=== PATIENT | male | born 1975 | race Caucasian/White ===

== ENCOUNTER 2017-07-07 18:31 | Emergency (ER) | payer OTHER ==
[~2017-07-07] VITALS: Ht 175.3 cm; Wt 117.9 kg
[2017-07-07] MEDS ORDERED: LISINOPRIL10 MG PO (18:46)
[2017-07-28] MEDS ORDERED: NORCO 10-325 T1 EACH PO (14:06)
[2017-07-28] MEDS ORDERED: AMLODIPINE BESY10 MG PO (14:11)
[2017-07-28] MEDS ORDERED: MICROZIDE12.5 MG PO (14:12)
[2017-07-28] MEDS ORDERED: ULTRAM50 MG PO (14:12)
[2017-07-28] MEDS ORDERED: MELOXICAM15 MG PO (14:13)
== END 2017-07-07 21:13 | disposition home or self-care (01) ==
LOC: ED 18:31
DX: M25.511 Pain in right shoulder (principal); I10 Essential (primary) hypertension; Z88.0 Allergy status to penicillin; Z98.890 Other specified postprocedural states; Z79.899 Other long term (current) drug therapy
CPT/HCPCS: 73030; 99282

== ENCOUNTER 2017-08-11 09:00 | Day surgery (SDC) | payer OTHER ==
--- NOTE | 2017-07-28 14:45 | NUR ---
PATIENT HERE FOR PREADMISSION APPOINTMENT. HE IS SCHEDULED TO HAVE A RIGHT TOTAL SHOULDER ARTHROPLASTY ON 08/11/17. PATIENT IS CURRENTLY WEARING A SLING FOR COMFORT. QUESTIONS WERE ANSWERED. PATIENT IS SCHEDULED WITH PHYSICAL THERAPY ON 08/07/17 AT 1000. THIS INFORMATION WILL BE SENT TO DR CALABRESE AND ROSENDA PLANNING FOR FURTHER FOLLOW UP.
[~2017-08-11] VITALS: Ht 175.3 cm; Wt 117.9 kg
[~2017-08-11 09:00] MED LIST: AMLODIPINE BESY10 MG PO; LISINOPRIL10 MG PO; MELOXICAM15 MG PO; MICROZIDE12.5 MG PO; NORCO 10-325 T1 EACH PO; ULTRAM50 MG PO
[2017-08-11] MEDS ORDERED: ZESTRIL20 MG PO (13:13)
--- NOTE | 2017-08-11 16:44 | NUR ---
patient arrived to room 121 at 1640. pt on cpap machine. 50% oxygen bled in. right arm in sling. radial pulse +2. opens eyes to voice. eyes closed between cares. no pain at this time.
--- NOTE | 2017-08-11 17:12 | NUR ---
08/11/17 1712 Allison Alvarez 1429 PT ARRIVED TO PACU WITH ORAL AIRWAY IN PLACE AND CHIN THRUST NEEDED TO MAINTAIN AIRWAY. PT UNRESPONSIVE TO VERBAL OR PAINFUL STIMULI. SNORING RESPS. SOME IMPROVMENT WITH JAW THRUST. BOX COVERING MACHINE OPERATOR AT BEDSIDE. ACCESSORY MUSCLE/ SEESAW BREATHING. 1434 O2 SAT 86% WITH GOOD WAVE FORM. O2 INCREASED TO 15L VIA MASK. 1436 BREATHING TREATMENT GIVEN PER BOX COVERING MACHINE OPERATOR, UPPER WHEEZE NOTED. 1440 PT WOKE UP TO PAINFUL STIMULI AND ORAL AIRWAY REMOVED. ENCOURAGED TO DEEP BREATH AND COUGH PT UNABLE TO FOLLOW COMMANDS. CONTINUES TO HAVE DECREASED O2. 1443 RT AT BEDSIDE. 1447 O2 SAT 94%, 15L VIA MASK. PT CONTINUES TO BE DIFFICULT TO AROUSE. 1450 BOX COVERING MACHINE OPERATOR GIVING LASIX AND MAGNESIUM IN LR BAG HANGING. 1453 O2 SAT 91%, 15L VIA MASK. PT AWAKE OFF AND ON, CAN NOT FOLLOW COMMANDS TO DEEP BREATH AND COUGH. 1456 PT REPORTS SOB. RT PLACE PT ON BI PAP SEE RT NOTES FOR SETTINGS. 1458 BOX COVERING MACHINE OPERATOR AT BEDSIDE AND BENADRYL AND HYDROCORTISONE GIVEN. 1500 PT AWAKE OFF AND ON. VERY DROWSY. MUMBLED SPEECH, RESP EVEN AND LABORED BUT INPROVING, DECREASED USE OF ACCESSORY MUSCLES. DENIES PAIN AND NAUSEA. 1503 HOSPITALIST CONSULT PUT IN AND RT DRAWING ABG. 1518 X-RAY AT BEDSIDE FOR CHEST X-RAY. 1530 BOX COVERING MACHINE OPERATOR AWARE OF ABG RESULTS. VERBAL ORDER TO TITRATE FiO2. 1532 BI PAP SETTING O2 INCREASED 60% 1534 BI PAP SETTING O2 INCREASED TO 70%, IPAP 18% 1540 PT CONTINUES TO BE DIFFICULT TO AROUSE. NOT EFFECTIVELY DEEP BREATHING OR COUGHING. 1544 NARCAN GIVEN PER BOX COVERING MACHINE OPERATOR, 1545 PT ASKING TO USE URINAL AND MORE AWAKE, DENIES PAIN AND NAUSEA. 1556 PT UNABLE TO URINATE. AGREES TO WEBB CATHETER. PT COMPLAINING OF ABD DISCOMFORT, HE RELATES TO BLADDER. 1558 MD HOSPITALIST AT BEDSIDE. 1559 BI PAP REMOVED PER MD. 1604 CATHETER PLACED PER BOX COVERING MACHINE OPERATOR. 1615 BI PAP REPLACE. BI PAP O2 SETTING DECREASED TO 50%, IPAP 15%. PT IS ALERT AND ORIENTED X3. BREATHING IMPROVING ON BI PAP. PT DENIES SOB, PAIN OR NAUSEA. 1630 PT CONTINUES TO IMPROVE, TRANSFERED TO FLOOR WITH RN AND RT AT BEDSIDE.
--- NOTE | 2017-08-11 17:38 | NUR ---
PT HUNGRY AND GIVEN PUDDING, JUICE, AND CRACKERS. IF TOLERATES PATIENT WILL BE SALINE LOCKED. SANDWICH ORDERED FROM KITCHEN PER PATIENT REQUEST. FAMILY AT BEDSIDE.
--- NOTE | 2017-08-11 17:49 | NUR ---
PATIENT HAD RESPIRATORY FAILURE AFTER SURGERY. ON BIPAP. SERIAL ABGs TAKEN. IMRPOVED PCO2. PATIENT ON 4L O2 NC NOW SATURATING 95%. TOLERATING SOLID FOODS WELL. SALINE LOCKED. FAMILY AT BEDSIDE. WEBB CATHETER IN PLACE. RIGHT ARM IN SLING. NO PAIN.
--- NOTE | 2017-08-11 21:20 | NUR ---
PATIENT C/O PAIN #8.5/. CHARGE NURSE NOTIFIED.
--- NOTE | 2017-08-11 21:40 | NUR ---
PT SITTING UP IN BED, WATCHING TV. FRIENDS JUST LEFT, THEY BROUGHT A PIZZA IN FOR PT, IN WHICH HE ATE 1/2 OF IT, DENIES NAUSEA. PT NOW RATING PAIN AT 9/10, GAVE SCHEDULED PAIN MEDICATIONS. PT LAYING IN BED, NO DISTRESS AT THIS TIME. ALERT AND ORIENTED X4, PLEASENT DEMEANOR. COOPERATIVE. RIGHT ARM IN SLING, ICE IN PLACE. CALL LIGHT IN REACH. WILL CONTINUE TO MONITOR PAIN CLOSELY. O2 SAT IN MID TO UPPER 90'S ON 4L VIA NC.
--- NOTE | 2017-08-11 22:33 | NUR ---
PT CONTINUES TO COMPLAIN OF 9/10 PAIN, GAVE OXYCODONE FOR PAIN. NO FURTHER NEEDS. CALL LIGHT IN REACH.
--- NOTE | 2017-08-11 23:24 | NUR ---
PT RESTING QUIETLY. NO NEEDS AT THIS TIME. CALL LIGHT IN REACH. LIGHTS OUT. TV ON IN ROOM.
--- NOTE | 2017-08-11 23:39 | NUR ---
RT IN TO ASSESS PT. PT NOW RATES PAIN AT A 5/10, STATES "ITS TOLERABLE RIGHT NOW." EDUCATED PT ON PAIN MANAGMENT. PT AGREES TO CALL RN IF PAIN WORSENS. CALL LIGHT IN REACH.
--- NOTE | 2017-08-12 00:52 | NUR ---
pt reports pain is starting to "creep up." gave dilaudid 1 tab for pain. 94% on 3l via nc. no further needs. call light in reach.
--- NOTE | 2017-08-12 06:09 | NUR ---
pt complained of 8/10 pain, gave dilaudid iv for pain. pt alert and oriented x4. awake, watching tv. pleasent demeanor. talkative. no further needs.
--- NOTE | 2017-08-12 07:15 | NUR ---
BEDSIDE HANDOFF REPORT RECEIVED FROM IRON CUTTER. PT RESTING IN BED. PT RATING PAIN 5/10. PT DENIES NEEDS AT THIS TIME, ASSISTED WITH ORDERING DINNER.
--- NOTE | 2017-08-12 08:01 | OR ---
[facility] [address] [place] [place] [address] Signed DATE OF OPERATION: 08/11/2017 SURGEON: Colten Calabrese MD PREOPERATIVE DIAGNOSIS: End-stage primary osteoarthritis, right shoulder. POSTOPERATIVE DIAGNOSIS: End-stage primary osteoarthritis, right shoulder. PROCEDURE: Right total shoulder arthroplasty. ANESTHESIA: General. SPECIMENS AND COMPLICATIONS: There were no specimens or complications. BLOOD LOSS: About 200 mL. IMPLANTS: Size 12 stem, size 12 body, 52 mm x 18 head, and a 52 mm all-poly glenoid. These are all from the [employer] system. WHAT WAS DONE: The patient was taken to the operating room. After anesthesia was induced and airway secured, the patient was placed in a modified beach chair position and prepped and draped in a routine sterile fashion. An anterior deltopectoral incision was made through skin and subcutaneous tissue. Hemostasis was achieved with electrocautery. The deltopectoral interval was identified. Cephalic vein was gently even exposed and the deltoid in the cephalic vein were taken laterally and the pec was taken medially. We did a minimal release of the top 20% of the pec major to give us a little more external rotation. We then identified the biceps tendon in the bicipital groove and released the anterior tubercular ligaments. We placed a stay suture in the long head of the biceps and then sectioned it. We then followed the long-head of the biceps through the rotator interval all the way to the glenoid. We then elevated the subscapularis off the lesser tuberosity with sharp dissection. As we peeled it back, we placed some stay sutures in the leading edge and we were able to separate it from the underlying capsule. We then Electronically Signed By: COLTEN CALABRESE MD 08/12/17 0801 PATIENT NAME: JIHAN LUIS JR OPERATIVE REPORT DATE OF : 77 REPORT #: [id number] PHYSICIAN: COLTEN CALABRESE MD PCP: NO PRIMARY CARE PHYSICIAN REPORT IS CONFIDENTIAL AND NOT TO BE RELEASED WITHOUT AUTHORIZATION [facility] [address] [place], [place] [address] Signed allowed the subscap to retract. We then externally rotated the shoulder and delivered the humeral head into the wound. The remaining portion of the rotator cuff was intact, as had been anticipated from the MRI scan. We then began at the apex of the articular surface and drilled a small submersible pilot hole. We then reamed with a quiller hand up to a size 12, which gave us an excellent fit. We then assembled the resection jig, aligned it, so it was aligned with the forearm and resected the articular surface. We then removed the articular fragment and measured, it was 52 by about 16. We then placed a humeral head protector on the top of the humerus and externally rotated. Using blunt and sharp dissection staying right on the humeral neck, we released the capsule all the way down and slightly past the 6 o'clock position. However, then able to place some retractors around the glenoid and actually had very good glenoid exposure. Using a sharp and electrocautery dissection, we then removed the entire labrum and then gently did a circumferential re-release. At this point, we had excellent exposure of the glenoid. We trialed with a 52 overlay and we are quite happy. We then placed the drill pin through the center of the overlay and then reamed the central portion. We then placed the 52 guide over the central pec and once we were happy with the rotation, secured the 3 additional fixation points. We then removed this. The glenoid was copiously irrigated and meticulously dried. We used the bone graft to tamper and filled the central pec at the glenoid with bone graft material. We then mixed a single batch of cement and put a tiny bit of cement in each of the 3 peripheral fixation holes. The 52 mm glenoid was then pounded into place and seated securely. We then rotated the humerus back into the wound. We again placed the trial in place and it fit quite nicely on the neck cut. We therefore trialed the 15 and 18 and a 21 mm x 52 head. The 15 clearly was a little too loose, the 18 seemed excellent, the 21 seemed to slightly overstuff the joint. We therefore copiously irrigated the shoulder to cut all the trials, put in the real 12 x 12 implant and then the final 52 x 18 head. We then relocated the shoulder. Before driving the final components into place, we have placed a number of stay sutures through the fins. These were then used to reattached in advance the subscapularis with #2 FiberWire. We then closed the rotator interval with #2 FiberWire. The biceps tendon was then looped over the pec major tendon and sutured back to itself. The wound was copiously irrigated and closed in a standard fashion. The patient was placed in a sling, awakened to recovery room and arrived in stable condition. MD INGRID Blanc/BEAU /[id number] Electronically Signed By: COLTEN CALABRESE MD 08/12/17 0801 PATIENT NAME: JIHAN LUIS JR OPERATIVE REPORT DATE OF : 77 REPORT #: [id number] PHYSICIAN: COLTEN CALABRESE MD PCP: NO PRIMARY CARE PHYSICIAN REPORT IS CONFIDENTIAL AND NOT TO BE RELEASED WITHOUT AUTHORIZATION [address] [address] Signed Copies: ~ Electronically Signed By: COLTEN CALABRESE MD 08/12/17 0801 PATIENT NAME: JIHAN LUIS JR OPERATIVE REPORT DATE OF : 77 REPORT #: [id number] PHYSICIAN: COLTEN CALABRESE MD PCP: NO PRIMARY CARE PHYSICIAN REPORT IS CONFIDENTIAL AND NOT TO BE RELEASED WITHOUT AUTHORIZATION
--- NOTE | 2017-08-12 08:15 | NUR ---
PT RESTING IN BED, GOOD APPETITE, ATE 100% OF BREAKFAST. PT RATING PAIN 5/10, GIVEN OXYCODONE, ICE PACK TO RIGHT SHOULDER. PT 97% ON 3L NC, WEANED TO 2L, CONTINUOUS PULSE OX IN PLACE, LUNG SOUNDS CLEAR, DENIES SOB. PT DENIES NAUSEA, BOWEL TONES ACTIVE. PT WITH NUMBNESS TO RIGHT FINGERS 1-3, MORE NUMB AND WEAKER THAN PT BASELINE, ARM IN SLING, PUSLE PALPABLE, FINERGS WARM. PT WITH WEBB CATH IN PLACE, DRAINING FREELY. IV SALINE LOCKED. PT DENIES OTHER NEEDS AT THIS TIME, DISCUSSED PLAN OF CARE.
--- NOTE | 2017-08-12 10:25 | NUR ---
VS AND I&O'S TAKEN AND DOCUMENTED. PT GIVEN LEFTOVER PIZZA THAT WAS IN THE FRIDGE AND A SODA POP. PT STATES HE HAS NO OTHER NEEDS AT THIS TIME. INFORMED PT TO CALL IF HE THINKS OF ANYTHING. CALL LIGHT IS IN REACH.
--- NOTE | 2017-08-12 11:00 | NUR ---
pt resting in chair. pt complaint of pain 8/10 to right shoulder, requestign pain medication. pt given 8 mg po dilaudid. pt denies other needs at this time. weaned to 1l nc.
[2017-08-12] MEDS ORDERED: NORCO 10-325 T1 EACH PO (13:21)
--- NOTE | 2017-08-12 13:49 | NUR ---
REVIEWED CHEST XRAY AND REPORTED TO THIS RN PT OK FOR DISCHARGE"
--- NOTE | 2017-08-13 09:06 | NUR ---
FAXED CHART NOTES TO [facility] OP PT INCLUDING FACESHEET, ORDER, H AND P, OP NOTE, AND PT EVAL. RECIEVED FAX CONFIRMATION.
--- NOTE | 2017-08-13 09:59 | NUR ---
PT WAS SITTING IN CHAIR-ALERT AND ORIENTED. HE SHARED WITH ME THAT HE FEELS BAD THAT HE HAS HAD THIS SURGERY BECAUSE OF WHAT HE PERCEIVES ARE HARDSHIPS PLACED ON HIS CHILDREN. HE SAID HE HAS 5, AND ALL LIVE WITH THEIR MOTHERS, BUT HE KNOWS THE [facility] FOR DAD. FEELS HIS QUESTIONS HAVE BEEN ANSWERED, HOPES HEALING COMES SOON. EXTENDED A BLESSING, WILL FOLLOW NEEDED
== END 2017-08-12 14:25 | disposition home or self-care (01) ==
LOC: DSVR 09:00 → DS 09:00 → MS 09:00 → EDSTATUS 11:45 → MS 16:25 → DSVR 16:25 → MS 08-12 14:25 → DS 08-12 14:25
PROVIDERS: Orthopaedic Surgery
PROC: 0RRJ0JZ Replacement of Right Shoulder Joint with Synthetic Substitute, Open Approach (ICD-10-PCS; principal; 2017-08-11 11:45)
DX: M19.011 Primary osteoarthritis, right shoulder (principal); I10 Essential (primary) hypertension; Z88.0 Allergy status to penicillin; Z79.891 Long term (current) use of opiate analgesic; Z79.899 Other long term (current) drug therapy; Z79.1 Long term (current) use of non-steroidal anti-inflammatories (NSAID)
CPT/HCPCS: 01630; 36415; 36600; 64415; 71045; 71046; 73030; 76942; 80048; 82803; 85025; 94660; 94668; 94762; 97110; 97161; C1713; C1776; G8978; G8979; G8980; J0690; J0735; J1100; J1200; J1720; J1885; J2250; J2270; J2310; J2405; J2704; J2765; J3010; J3370; J3475; J7120

== ENCOUNTER 2025-05-12 06:05 | Day surgery (SDC) | payer OTHER ==
[~2025-05-12] VITALS: Ht 175.3 cm; Wt 140.0 kg
[~2025-05-12 06:05] MED LIST changes: +HYDROCODON-ACE1 EA11 PO; +LACTATED RINGER'S 1,000 ML IV SCH; +ZESTRIL20 MG PO
[2025-05-12 06:38] VITALS: BP 143/95
[2025-05-12] MEDS ORDERED: ASPIRIN325 MG PO (06:41)
[2025-05-12] MEDS ORDERED: IBUPROFEN200 M1 PO (06:42)
[2025-05-12] MEDS ORDERED: LIDOCAINE HCL 1% 5 ML SDV INJ ONE (07:00)
[2025-05-12] MEDS ORDERED: CEFAZOLIN SODIUM 3 GM in SODIUM CHLORIDE 0.9% 100 ML IV SCH (07:00)
[2025-05-12] MEDS ORDERED: IBLOOD GLUCOSE TEST STRIP 1 EA TEST VI PRN ×2 (07:00→09:45)
[2025-05-12] MEDS ORDERED: HEParin SOD (PORCINE) 5,000 UNIT/ML SDV SUB-Q SCH (07:00)
[2025-05-12] MEDS ORDERED: fentaNYL citrate 100 MCG/2 ML VIAL ONE ×2 (07:04→08:24)
[2025-05-12] MEDS ORDERED: MIDAZOLAM HCL 2 MG/2 ML VIAL ONE (07:04)
[2025-05-12] MEDS ORDERED: ROCURONIUM BROMIDE 50 MG/5 ML SYR ONE ×2 (07:04→08:21)
[2025-05-12] MEDS ORDERED: DEXAMETHASONE SOD PHOS 4 MG/ML VIAL ONE (07:04)
[2025-05-12] MEDS ORDERED: KETOROLAC TROMETHAMINE 30 MG/ML VIAL ONE (07:04)
[2025-05-12] MEDS ORDERED: ACETAMINOPHEN 1,000 MG/100 ML VIAL ONE (07:04)
[2025-05-12] MEDS ORDERED: LIDOCAINE HCL 2% 20 MG/ML VIAL INJ ONE (07:04)
[2025-05-12] MEDS ORDERED: LIDOCAINE HCL 2% 5 ML SDV ONE (07:04)
[2025-05-12] MEDS ORDERED: SUGAMMADEX SODIUM 200 MG/2 ML ML ONE (07:05)
[2025-05-12] MEDS ORDERED: HYDROmorphone HCL 1 MG/ML SYR IV PRN (09:45)
[2025-05-12] MEDS ORDERED: fentaNYL citrate 50 MCG/ML SDV IV PRN (09:45)
[2025-05-12] MEDS ORDERED: PROCHLORPERAZINE EDISYLATE 10 MG/2 ML VIAL IV PRN (09:45)
[2025-05-12] MEDS ORDERED: NALOXONE HCL 0.4 MG SYR IV PRN (09:45)
--- NOTE | 2025-05-12 10:06 | NUR ---
05/12/25 1006 Faye Do 0927-PT ARRIVES TO PACU, VIA STRETCHER, PT NOT RESPONISVE TO NOXIOUS STIMULI, OPA IN PLACE, PT REQUIRING MANUAL JAW THRUST, O2 SATS 87% ON 10L VIA MASK, O2 INCREASED TO 15L, SATS INCREASED TO 89%. ANESTHESIA AT BEDSIDE ASSESSING PT. 0930-PT PLACED ON 15L VIA NRB, SATS IMPROVED TO 96%. PT NO LONGER REQUIRING MANUAL JAW THRUST. OPA REMAINS IN PLACE. 0935-PT RESPONISIVE TO STIMULI, SWITCHED BACK TO 10L VIA MASK, VS REMAIN STABLE. PT FALLS BACK TO SLEEP EASILY, RR EVEN AND NON LABORED. 0940-PT AWAKENS ON OWN TAKING OFF MASK, TRIALED ON RA, VSS. PT DENIES PAIN OR NAUSEA. 0945-PT FALLS BACK TO SLEEP EASILY, RR EVEN AND UNLABORED, O2 SATS DECREASE TO 88% PLACED ON 10L VIA MASK, SATS IMPROVED TO 97%. 1000-PT AWAKENS TO VOICE AND FOLLOWS INSTRUCTIONS TO DEEP BREATH, PT SWITCHED TO 6L VIA NC, VS REMAIN STABLE. PT C/O ABDOMINAL TENDERNESS BUT DENIES NEED FOR INTERVENTION. FALLS BACK TO SLEEP EASILY, RR EVEN AND UNLABORED.
[2025-05-12] MEDS ORDERED: SEVOFLURANE 250 ML BTL INH ONE (10:51)
[2025-05-12] MEDS ORDERED: OXYCODONE HCL 5 MG TAB PO ONE (11:00)
[2025-05-12 11:06] VITALS: BP 135/85
--- NOTE | 2025-05-12 11:20 | NUR ---
1055 PT ARRIVED TO DAY SURGERY FROM PACU VIA STREACHER. PT BREATHING EQUAL AND UNLABORED. PT VITALS TAKEN. IV ASSESSED, AND IS SALINE LOCKED. REPORT TAKEN FROM RAND Ambrocio RN. RN REPORTS THAT PT HAS VOIDED 250 MLS IN PACU, PT HAS ALSO TOLERATE PO FLUIDS AND SNACKS IN PACU WELL. PT REPORTS 6/10 PAIN AT THIS TIME, PT REPORTS NO NAUSEA. PT HAS CALL LIGHT WITHIN REACH AND PERSONAL ITEMS WITHIN REACH. PT STEP FATHER IN ROOM AT BEDSIDE. 1110 PAIN MEDICATIONS GIVEN PER EMAR. PT STEP FATHER IN ROOM AT BEDSIDE.
[2025-05-12 12:14] VITALS: BP 143/85
--- NOTE | 2025-05-12 12:23 | NUR ---
1210 HOURLY ROUNDIND DONE WITH PT. PT VITALS TAKEN. PT REPORTS NO NAUSEA. PT DOES REPORT TOLERABLE 5/10 PAIN. PT STATES WHEN HE DOESNT MOVE AT ALL IT GOES DOWN TO A 4/10. 1215 DISCHARGE INFORMATION GONE OVER WITH PT. DEMONSTRATED TO PT HOW TO TAKE ABDOMINAL BINDER ON AND OFF. NO QUESTIONS AT THIS TIME. PT STEP DAD IN ROOM FOR DISCHARGE INFORMATION. 1220 PT GETTING DRESSED WITH MINIMAL ASSITANCE. PT HAS ABDOMINAL BINDER IN PLACE. 1225 PT DISCHARGE FROM DAY SURGERY VIA WHEELCHAIR TO THE FRONT OF THE HOSPITAL TO PT'S STEP DAD'S CAR. PT HAS PRESCRIPTION AND DISCHARGE PAPERWORK IN HAND.
--- NOTE | 2025-05-14 22:01 | EKG ---
[facility] [address] [facility] [place] [address] Signed Normal sinus rhythm Normal ECG When compared with ECG of 28-JUL-2017 14:08, Nonspecific T wave abnormality now evident in Inferior leads Confirmed by Mukesh Meyer MD () on 05/14/2025 10:01:15 PM Electronically Signed By: MUKESH MEYER MD 05/14/252200 PATIENT NAME: JIHAN LUIS Electrocardiogram DATE OF : 77 PHYSICIAN: MUKESH MEYER MD REPORT #: [id number] REPORT IS CONFIDENTIAL AND NOT TO BE RELEASED WITHOUT AUTHORIZATION
[2025-05-25] MEDS ORDERED: HYDROCODON-ACE1 EA10 PO (22:10)
== END 2025-05-12 12:25 | disposition home or self-care (01) ==
LOC: DS 06:05
PROVIDERS: ATTEND Surgery
PROC: 0WJF4ZZ Inspection of Abdominal Wall, Percutaneous Endoscopic Approach (ICD-10-PCS; 2025-05-12)
PROC: 0WUF0JZ Supplement Abdominal Wall with Synthetic Substitute, Open Approach (ICD-10-PCS; principal; 2025-05-12 07:30)
DX: K42.0 Umbilical hernia with obstruction, without gangrene (principal); I10 Essential (primary) hypertension; E66.01 Morbid (severe) obesity due to excess calories; Z68.41 Body mass index [BMI] 40.0-44.9, adult; Z88.0 Allergy status to penicillin; Z79.899 Other long term (current) drug therapy
CPT/HCPCS: 00750; 93005; 93010; A9270; C1781; J0131; J0688; J1100; J1644; J1885; J2003; J2250; J2405; J2704; J3010; J3490; J7121